=== PATIENT | female | born 1975 | race Caucasian/White ===

== ENCOUNTER 2020-07-16 08:09 | Outpatient (REF) | payer OTHER, SELFPAY ==
[2020-07-16 11:10] LABS: MANUAL DIFF FLAG NO
[2020-07-16 11:23] LABS: Basophils Percent Auto 0.6 % (0-2); Eosinophils Absolute Auto 0.2 X10*3/uL (0.0-0.4); Eosinophils Percent Auto 2.9 % (0-4); Hematocrit 40.6 % (37-47); Hemoglobin 13.3 g/dl (12.0-16.0); Imm Gran Abs Auto 0.01 X10*3/uL (0.00-0.03); Imm Gran Pct Auto 0.2 % (0.0-0.4); Lymphocytes Absolute Auto 2.5 X10*3/uL (1.2-4.9); Lymphocytes Percent Auto 48.4 % (20-40); Mean Corpuscular HGB Conc 32.8 g/dl (31.0-35.0); Mean Corpuscular Hemoglobin 29.8 pg (27.0-33.0); Mean Corpuscular Volume 90.8 fL (80-98); Monocytes Absolute Auto 0.5 X10*3/uL (0.1-1.2); Monocytes Percent Auto 8.7 % (2-11); Neutrophils Percent Auto 39.2 % (45-73); Platelet Count 288 X10*3/uL (160-400); Red Blood Count 4.47 X10*6/uL (4.20-5.50); Red Cell Distribution Width 12.9 % (11.0-16.0); White Blood Count 5.2 X10*3/uL (4.8-10.8)
[2020-07-16 11:31] LABS: Alanine Aminotransferase 20 U/L (0-31); Albumin Level 4.4 g/dL (3.5-5.0); Alkaline Phosphatase 78 U/L (39-117); Anion Gap 13 (12-20); Aspartate Amino Transferase 16 U/L (5-31); Bilirubin Total 0.5 mg/dL (0.0-1.0); Blood Urea Nitrogen 14 mg/dL (9-16); Calcium 8.6 mg/dL (8.4-10.2); Carbon Dioxide 24 mmol/L (22-29); Chloride 107 mmol/L (96-108); Estimated Glomerular Filt Rate > 60; Glucose Fasting 85 mg/dL (60-99); Potassium 3.8 mmol/l (3.3-5.1); Sodium 140 mmol/L (135-145); Total Protein 7.5 g/dL (6.5-8.0)
[2020-07-16 11:43] LABS: Glucose Urine UA NEG (NEG); Leukocyte Esterase Urine NEG (NEG); Nitrite Urine NEG (NEG); Urine Blood 1+ (NEG); Urine Ketones NEG (NEG); Urine Protein NEG (NEG-TRACE)
[2020-07-16 11:50] LABS: Appearance Urine CLEAR; Color Urine YELLOW
[2020-07-16 11:56] LABS: TSH reflex Free T4 1.31 mIU/mL (0.32-4.0)
[2020-07-16 12:33] LABS: Squamous Epithelial Cell Urine 1+ /LPF; WBC Urine 0 /HPF (0-4)
== END 2020-07-16 08:10 | disposition home or self-care (01) ==
LOC: HO.HMGCLDS 08:09
PROVIDERS: PCP Internal Medicine; Visit Provider Hospitalist
DX: R53.82 Chronic fatigue, unspecified (principal)
CPT/HCPCS: 36415; 80053; 81001; 84443; 85025

== ENCOUNTER 2020-09-20 14:57 | Emergency (ER) | payer OTHER, SELFPAY ==
[2020-09-20 15:35] VITALS: BP 149/95; PULSE 68; RESP 16; TEMP 37.1; O2SAT 98; BMI 30.8
[2020-09-20] MEDS: Acetaminophen 325 MG TABLET 650 MG PO (17:15)
[2020-09-20] MEDS: Ketorolac Tromethamine 30 MG/ML VIAL IM (17:15)
--- NOTE | 2020-09-20 17:15 | ED_ITS ---
HPI - Back Pain/Injury General Chief Complaint: Back Pain/Injury Stated Complaint: BACK PAIN Time Seen by Provider: 09/20/20 16:58 History of Present Illness HPI Narrative: Patient complains of back pain for 1 day worse with movement after lots of shoveling yesterday and developed her back pain soon after shoveling, no numbness no weakness or paresthesias no changes to bowel or bladder no fall no other injury no other complaints, pain is moderate Related Data Previous Rx's Medication Instructions Recorded gabapentin 100 mg capsule 100 mg PO TID 30 Days #90 cap 09/02/20 ibuprofen 600 mg PO Q6H PRN #20 tab 09/20/20 oxycodone-acetaminophen [Percocet] 1 tab PO Q6H PRN #14 tab 09/20/20 Allergies Allergy/AdvReac Type Severity Reaction Status Date / Time No Known Allergies Allergy Unverified 06/20/20 17:56 [No Known Allergies*] Lyrica AdvReac Intermediate severe Uncoded 09/02/20 14:23 constipation Review of Systems 2 Review of Systems: No fever no chills no dizziness no weakness no neck pain no abdominal pain no chest pain no numbness no weakness no paresthesias no changes to bowel or bladder no urinary discomfort or frequent, no incontinence Yes all other systems are reviewed and are negative PMFSH Past Medical History Source: nursing notes reviewed Medical History (Updated 09/20/20 @ 17:03 by PETER Vanessa) Back pain Fibromyalgia GERD without esophagitis Neck pain Obesity (BMI 30-39.9) Rib pain Surgical History H/O section Status post total abdominal hysterectomy and bilateral salpingo-oophorectomy (JOHN-BSO) (~2008) Family History Family History (Updated 09/02/20 @ 14:39 by Aris Ha MD) Father Hypertension Mother Hypertension Diabetes mellitus Asthma Arthritis Social History Social History (Updated 09/02/20 @ 14:39 by Aris Ha MD) Alcohol intake: never Smoking Status: Former smoker Advance Directives: No Advance Directives Information Provided: No Physical Exam Vital Signs: Vital Signs: Last Vital Signs Temp 98.8 F 09/20/20 15:35 Pulse 68 09/20/20 15:35 Resp 16 09/20/20 15:35 BP 149/95 H 09/20/20 15:35 Pulse Ox 98 09/20/20 15:35 Body Mass Index 30.8 General appearance is no acute distress, cooperative A&O x3 The head is normocephalic atraumatic Neck is supple nontender Respiratory is no acute distress Abdomen is soft nontender The back had right-sided lower lumbar tenderness, there is no focal bony tenderness there is no CVA tenderness, pain is easily reproduced with movement, the skin is normal without redness warmth wound or rash Extremities full range of motion x4 Neuro gait is normal, verbal interaction is normal, motor is 5/5 x4 and sensation is intact and symmetrical Course Course Course Narrative: Patient is treated for musculoskeletal back pain and discharged to follow with her doctor Discharge Plan Discharge Clinical Impression: Back pain Qualifiers: Back pain location: low back pain Chronicity: unspecified Back pain laterality: right Sciatica presence: with sciatica Sciatica laterality: sciatica of right side Qualified Code(s): M54.41 - Lumbago with sciatica, right side Patient Disposition: Home, Self-Care Additional Instructions: Follow with primary care doctor Return any time any worse condition or concerns Prescriptions: New ibuprofen 600 mg tablet 600 mg PO Q6H PRN (Reason: pain) Qty: 20 RF: 0 oxycodone-acetaminophen [Percocet] 5-325 mg tablet 1 tab PO Q6H PRN (Reason: pain) Qty: 14 RF: 0 No Action gabapentin 100 mg capsule 100 mg PO TID 30 Days Qty: 90 RF: 1 Stand Alone Forms: Work/School Release
== END 2020-09-20 17:25 | disposition home or self-care (01) ==
PROVIDERS: Emergency Provider Emergency Medicine Emergency Medical Services; PCP Internal Medicine
DX: M54.41 Lumbago with sciatica, right side (principal)
CPT/HCPCS: 96372; 99283; 99284; J1885

== ENCOUNTER 2021-07-06 13:16 | Emergency (ER) | payer MEDICARE, MEDICAID, SELFPAY ==
--- NOTE | ~2021-07-06 | XR_ITS ---
EXAMINATION: XR ANKLE, LEFT CLINICAL INFORMATION: Deformity. COMPARISON: None TECHNIQUE: AP, lateral, and mortise views of the left ankle. FINDINGS: There is prominent soft tissue swelling over the lateral malleolus. There is a small joint effusion. No fracture, malalignment or other acute bony abnormality is seen. A small plantar spur is present on the calcaneus. XR/XR ankle LT 2V IMPRESSION: Prominent soft tissue swelling with small joint effusion. No fracture.
[2021-07-06 14:00] VITALS: BP 124/80; PULSE 67; RESP 18; TEMP 37; O2SAT 99; BMI 31.5
--- NOTE | 2021-07-06 15:47 | ED_ITS ---
HPI - Extremity Injury (Lower) General Chief Complaint: Extremity Injury, Lower Stated Complaint: l ankle inj Time Seen by Provider: 07/06/21 15:46 Source: patient Mode of arrival: ambulatory Limitations: no limitations History of Present Illness HPI Narrative: 45-year-old female pmhx significant for fibromyalgia presents to the ED with left ankle pain s/p rolling her ankle when stepping out of her car onto the curb. She states she immediately began feeling pain and her ankle immediately started swelling. She reports 10/10 pain.She is unable to pinpoint just 1 area that hurts, she states it is her entire ankle. She states the pain was so bad she fell, however, she did not hit her head and she lowered herself to the ground. She did not hit her head she did not loose conciousness. She denies chest pain, dizziness, shortness of breath, fevers, chills, LOC, vision changes MD complaint: ankle injury (Left ankle) Onset (ago): hour(s) (1) Type of Injury: inversion Severity: severe Severity scale (1-10): 10 Relieving factors: nothing Exacerbating factors: weight bearing, movement and palpation Associated symptoms: swelling and able to partially bear weight Other symptoms: none Related Data Previous Rx's Medication Instructions Recorded gabapentin 100 mg capsule 100 mg PO TID 30 Days #90 cap 09/02/20 ibuprofen 600 mg tablet 600 mg PO Q6H PRN #20 tab 20 ibuprofen 800 mg tablet 800 mg PO Q8H PRN #30 tab 20 oxycodone-acetaminophen 5 mg-325 1 tab PO Q6H PRN #14 tab 12/18/20 mg tablet (Percocet) oxycodone-acetaminophen 5 mg-325 1 tab PO Q8H PRN #14 tab 12/18/20 mg tablet (Percocet) Allergies Allergy/AdvReac Type Severity Reaction Status Date / Time No Known Allergies Allergy Verified 07/06/21 13:59 [No Known Allergies*] Lyrica AdvReac Intermediate severe Uncoded 09/02/20 14:23 constipation Review of Systems Review of Systems: Yes all other systems are reviewed and are negative Constitutional: Constitutional: Reports no additional constitutional complaints, Denies body ache(s), Denies chills, Denies fever(s), Denies headache(s) and Denies weakness Eyes: Eyes: Reports no additional eye complaints and Denies change in vision ENT: Reports system reviewed and no additional complaints, except as documented, Denies dizziness, Denies headache(s), Denies nasal congestion, Denies nasal discharge and Denies neck pain Cardiovascular: Cardiovascular: Reports no additional cardiovascular complaints, Denies chest pain, Denies leg edema and Denies dyspnea Respiratory: Respiratory: Reports no additional respiratory complaints, Denies cough and Denies dyspnea Gastrointestinal: Gastrointestinal: Reports no additional gastrointestinal complaints, Denies abdominal pain, Denies diarrhea, Denies nausea and Denies vomiting Musculoskeletal: Musculoskeletal: Reports no additional musculoskeletal complaints, Denies back pain, Reports arthralgias (left ankle ), Reports joint swelling (left ankle ), Reports limited range of motion, Denies muscle weakness, Denies neck pain, Denies numbness and Denies tingling Neurologic: Reports system reviewed and no additional complaints, except as documented, Denies Abnormal speech present, Denies dizziness, Denies headache(s), Denies numbness, Denies tingling and Denies weakness PMFSH Past Medical History Attestation statement: The following information was validated with the patient. Source: old records reviewed and nursing notes reviewed Medical History (Updated 07/06/21 @ 16:12 by Kandace Kessler NP) Back pain Fibromyalgia GERD without esophagitis Neck pain Obesity (BMI 30-39.9) Rib pain Surgical History H/O section Status post total abdominal hysterectomy and bilateral salpingo-oophorectomy (JOHN-BSO) (~2008) Family History Family History Father Hypertension Mother Hypertension Diabetes mellitus Asthma Arthritis Social History Social History Alcohol intake: never Advance Directives: No Advance Directives Information Provided: Yes Patient : No Physical Exam Vital Signs: Vital Signs: Last Vital Signs Temp 98.6 F 07/06/21 14:00 Pulse 67 07/06/21 14:00 Resp 18 07/06/21 14:00 BP 124/80 07/06/21 14:00 Pulse Ox 99 07/06/21 14:00 Body Mass Index 31.5 Const: General: cooperative, healthy appearing, comfortable and no acute distress Orientation/consciousness: patient oriented x3 Limitations: no limitations HENMT: Head: Yes normal to inspection Ears: hearing grossly normal bilaterally General nose exam: Normal external nose present Face and sinus: Yes normal facial exam Mouth: Normal oral and palatal mucosa present Throat: Yes posterior oropharynx normal Eyes: General: appearance normal, both eyes and all related structures Pupils: Equal, round and reactive pupils present Neck: Neck: Yes normal visual inspection Chest: Chest palpation & inspection: normal inspection of the chest Resp: Effort & Inspection: normal respiratory effort Auscultation: clear to auscultation bilaterally Cardio: Rate: regular rate Rhythm: regular rhythm Peripheral pulses: Peripheral pulses 2+ throughout GI: Inspection: Yes normal to inspection Palpation (GI): Soft to palpation and nontender Auscultation: normal bowel sounds Back/Spine/Pelvis: Thoracic/Lumbar Spine: thoracic and lumbar spine normal to inspection Skin: General skin exam: no rashes or lesions noted Neuro: General: patient oriented x3, no focal motor deficits and normal sensation to monofilament Cranial nerves: Yes Equal, round and reactive pupils present Cognition (Neuro): normal cognition Speech: No Abnormal speech present Gait exam (Neuro): Normal gait present Motor exam (neuro): 5/5 motor strength present throughout Extrem: General: No normal to inspection (significant swelling to left ankle), No full ROM (limited ROM to right ankle d/t pain and swelling ), Yes capillary refill normal, Yes no calf tenderness and Yes edema (left ankle) Left lower extremity: normal capillary refill, edema and ankle (left ) Details: swelling, pitting edema, abnormal ROM (due to pain, no evident ligament or tendon involvement. Sensation intact. 2+ pulses ), warmth and ecchymosis; No no cyanosis Course Course Course Narrative: 45 yo female pmhx significant for fibromyalgia presents to the ED with left ankle pain s/p rolling her left ankle when stepping out of her car onto the curb. She immediatly noted 10/10 pain and swelling. Physical examination showed pain and swelling to the left ankle, and limited range of motion due to pain. However distal pulses are 2+ and strength equal and bilater al, normal capillary refill. Sensation intact. Extremities warm. There is no evident ligament or tendon involvement. No foot drop. She is safe for discharge home. She can take ibuprofen for pain, use crutches and wear an aircast. She should follow up with her PCP. And she should follow-up with orthopedics if symptoms do not resolve within 2 weeks. MDM - Extremity Injury (Lower) MDM Narrative Medical decision making narrative: An Xray of the left ankle was ordered to r/o fracture, it showed no acute fracture, it did however show swelling and a small effusion. Extremity is warm and swollen with normal sensation. Pain is appropriate for mechanism of injury. Likely not a ligamentous/tendon injury. Medical Records Attestation: I reviewed the patient's medical records. Lab Data Attestation: I reviewed the patient's lab results. Imaging Data Left ankle Xray: Attestation: I personally reviewed and interpreted this imaging study as follows: Radiologist's impression: FINDINGS: There is prominent soft tissue swelling over the lateral malleolus. There is a small joint effusion. No fracture, malalignment or other acute bony abnormality is seen. A small plantar spur is present on the calcaneus.? XR/XR ankle LT 2V IMPRESSION: Prominent soft tissue swelling with small joint effusion. No fracture. Procedures Procedure Narrative Procedure Narrative: Air splint, crutches Discharge Plan Discharge Clinical Impression: Left ankle sprain Qualifiers: Encounter type: initial encounter Involved ligament of ankle: unspecified ligament Qualified Code(s): S93.402A - Sprain of unspecified ligament of left ankle, initial encounter Patient Disposition: Home, Self-Care Instructions: Ankle Sprain (ED), Crutch Instructions (ED), R.I.C.E. Treatment (ED) Additional Instructions: Take ibuprofen for pain as needed Follow up with your PCP this week and folow up with orthopedics if symptoms do not resolve within two weeks. Rest, ice, compress, elevate extremity as outlined in the attached form Use crutches as instructed and wear the air cast Return to the emergency department with new or worsening symptoms Prescriptions: No Action ibuprofen 600 mg tablet 600 mg PO Q6H PRN (Reason: pain) Qty: 20 RF: 0 oxycodone-acetaminophen [Percocet] 5-325 mg tablet 1 tab PO Q6H PRN (Reason: pain) Qty: 14 RF: 0 oxycodone-acetaminophen [Percocet] 5-325 mg tablet 1 tab PO Q8H PRN (Reason: pain) Qty: 14 RF: 0 ibuprofen 800 mg tablet 800 mg PO Q8H PRN (Reason: pain) Qty: 30 RF: 0 gabapentin 100 mg capsule 100 mg PO TID 30 Days Qty: 90 RF: 1 Referrals: Aris Ha MD [Primary Care Provider] - 2 days Baldo Scott MD [Physician] - 2 weeks Stand Alone Forms: Work/School Release
[2021-07-06] MEDS: Ketorolac Tromethamine 15 MG/ML VIAL 30 MG IM (16:26)
== END 2021-07-06 17:50 | disposition home or self-care (01) ==
PROVIDERS: Emergency Provider Internal Medicine; PCP Internal Medicine
DX: S93.402A Sprain of unspecified ligament of left ankle, initial encounter (principal); M25.572 Pain in left ankle and joints of left foot; W01.0XXA Fall on same level from slipping, tripping and stumbling without subsequent striking against object, initial encounter; Y93.9 Activity, unspecified; Y92.9 Unspecified place or not applicable; Y99.9 Unspecified external cause status; Z79.899 Other long term (current) drug therapy
CPT/HCPCS: 29515; 73600; 96372; 99284; J1885

== ENCOUNTER 2022-05-01 11:42 | Emergency (ER) | payer BC, SELFPAY ==
[2022-05-01 11:50] VITALS: BP 145/87; PULSE 69; RESP 18; TEMP 36.8; O2SAT 99; BMI 32.1
--- NOTE | 2022-05-01 12:51 | ED.GENADULT ---
HPI - General Adult General Chief complaint: Extremity Problem Stated complaint: R arm pain rad. to back Time Seen by Provider: 05/01/22 12:38 Source: patient Mode of arrival: ambulatory Limitations: no limitations History of Present Illness HPI narrative: Patient is a 46 year old female presenting to the emergency department today with right elbow pain. Patient states that over the last week, she has had right elbow pain that radiates down into her right wrist and up into her right neck. Patient denies any dizziness, lightheadedness, abdominal pain, nausea, vomiting, fever, chills, blurry vision, double vision, loss of vision, chest pain, difficulty breathing, shortness of breath, back pain, night sweats, pain with urination, increased urinary frequency, increased urinary urgency, blood in her urine or stool, syncope or a near syncopal episode, recent trauma or falls, bowel incontinence, bladder incontinence, bowel retention, bladder retention, or any other complaints at this time. Patient states that she does do a lot of lifting and moving at work. Onset (ago): week(s) (1) Location: left and upper extremity Radiation: proximal and distal Severity: mild Severity scale (1-10): 1 Quality: dull Relieving factors: none Exacerbating factors: none Associated symptoms: denies other symptoms Treatments prior to arrival: none Related Data Home Medications Medication Instructions Recorded Confirmed betamethasone, augmented 0.05 % appl topical 12/31/21 12/31/21 topical cream Previous Rx's Medication Instructions Recorded cyclobenzaprine 5 mg tablet 5 mg PO TID PRN muscle spasm 30 11/25/21 days #90 tabs diclofenac sodium 1 % topical gel 2 g topical QID 10 days #100 grams 12/31/21 (Arthritis Pain (diclofenac)) prednisone 10 mg tablet 10 mg PO DAILY #18 tabs 12/31/21 Allergies Allergy/AdvReac Type Severity Reaction Status Date / Time No Known Allergies Allergy Verified 12/31/21 12:11 [No Known Allergies*] Lyrica AdvReac Intermediate severe Uncoded 12/31/21 12:11 constipation Review of Systems Constitutional: Constitutional: Reports no additional constitutional complaints, Denies chills, Denies fever(s) and Denies night sweats Eyes: Eyes: Reports no additional eye complaints, Denies blurry vision, Denies change in vision, Denies diplopia, Denies eye discharge, Denies loss of vision and Denies eye pain ENT: Denies dizziness Cardiovascular: Cardiovascular: Reports no additional cardiovascular complaints, Denies chest pain, Denies lightheadedness, Denies Loss of Consciousness and Denies dyspnea Respiratory: Respiratory: Reports no additional respiratory complaints and Denies dyspnea Gastrointestinal: Gastrointestinal: Reports no additional gastrointestinal complaints, Denies abdominal pain, Denies melena, Denies hematochezia, Denies change in bowel habits and Denies change in stool character Genitourinary: Genitourinary: Denies hematuria, Denies urinary frequency, Denies dysuria, Denies urinary incontinence, Denies urinary hesitancy and Denies urinary urgency Musculoskeletal: Musculoskeletal: Reports no additional musculoskeletal complaints, Denies numbness and Reports tingling (proximal and distal to the right elbow) Comments: right elbow pain Neurologic: Denies dizziness, Denies loss of vision, Denies numbness and Reports tingling (proximal and distal to the right elbow) Psychiatric: Psychiatric: Reports no additional psychiatric complaints Endocrine: Endocrine: Reports no additional endocrine complaints Hematologic/Lymphatic: Hematologic/Lymphatic: Reports no additional hematologic/lymphatic complaints Allergic/Immunologic: Allergic/Immunologic: Reports no additional allergic/immunologic complaints [facility] Past Medical History Attestation statement: The following information was validated with the patient. Source: old records reviewed Medical History Back pain Fibromyalgia GERD without esophagitis Neck pain Obesity (BMI 30-39.9) Rib pain Surgical History H/O section Status post total abdominal hysterectomy and bilateral salpingo-oophorectomy (JOHN-BSO) (~2008) Family History Family History Father Hypertension Mother Hypertension Diabetes mellitus Asthma Arthritis Social History Social History Housing: House Alcohol intake: former Patient Tobacco Use Status: Former Tobacco user e-Cigarette/Vaping Use: Never Used Second Hand Smoke Exposure: Yes service: No Current occupational status: employed Cognitive needs: No Hearing needs: No Vision needs: Yes Physical Exam ED Vital Signs: Vital Signs - 24 hr 05/01/22 11:50 Temperature 98.2 F Pulse Rate 69 Respiratory Rate 18 Blood Pressure 145/87 H Pulse Oximetry 99 Oxygen Delivery Method Room Air BMI result Body Mass Index 32.1 Const General: cooperative, no acute distress, alert and awake Nutritional Appearance: well nourished Orientation/consciousness: patient oriented x3 Limitations: no limitations HENMT Head: Yes normal to inspection and Yes atraumatic Ears: hearing grossly normal bilaterally and external ears normal General nose exam: Normal external nose present, no nasal discharge noted and no epistaxis Face and sinus: Yes normal facial exam, No abrasion and No laceration Mouth: Normal oral and palatal mucosa present, no drooling and no muffled voice Eyes General: appearance normal, both eyes and all related structures Periorbital: periorbital findings normal Eyelids: Yes eyelids normal Conjunctivae: conjunctivae normal Pupils: Equal, round and reactive pupils present EOM: EOMs intact bilaterally Neck Neck: Yes normal visual inspection, Yes full ROM and Yes no lymphadenopathy Chest Chest palpation & inspection: normal inspection of the chest Resp Effort & Inspection: normal respiratory effort and able to speak in complete sentences Auscultation: clear to auscultation bilaterally Cardio Rate: regular rate Rhythm: regular rhythm GI Inspection: Yes normal to inspection Neuro General: patient oriented x3 and moves all extremities Cranial nerves: Yes Equal, round and reactive pupils present Cognition (Neuro): normal cognition Motor exam (neuro): 5/5 motor strength present throughout Sensory Exam: Normal double simultaneous stimulation for sensation Coordination: [id number] test normal Extrem General: Yes normal to inspection, Yes full ROM and Yes capillary refill normal Psych Appearance: grossly normal Mental Status: mental status grossly normal Affect: normal affect Attitude: cooperative Thought process: Normal thought process present Thought content: Normal thought content present Insight: Good insight present (Psych) Medical Decision Making MDM Narrative Medical decision making narrative: Patient is a 46 year old female presenting to the emergency department today with right elbow pain. Patient's physical exam was unremarkable. I explained my physical exam findings to the patient. I answered all questions asked by the patient. I stressed the importance of the patient taking her medication as prescribed. I stressed the importance of the patient following up with her primary care provider and an orthopedic provider. I stressed the importance of the patient returning to the emergency department immediately if her symptoms were to worsen or if she were to develop any dizziness, shortness of breath, difficulty breathing, chest pain, blurry vision, loss of vision, nausea, vomiting, abdominal pain, fever, chills, back pain, or any other complaints. Patient verbalized agreement and understanding with this treatment plan and discharge. Differential Diagnosis Differential Diagnosis: Right elbow pain, tennis elbow Medical Records Medical records reviewed: Yes I reviewed the patient's medical records. Discharge Plan Discharge Clinical Impression: Right tennis elbow Patient Disposition: Home, Self-Care Instructions: Tennis Elbow (ED) Additional Instructions: Take ibuprofen for pain. Follow up with your primary care provider and an orthopedic provider. Return to the emergency department immediately if your symptoms worsen or if you develop any dizziness, shortness of breath, difficulty breathing, chest pain, blurry vision, loss of vision, nausea, vomiting, abdominal pain, fever, chills, back pain, or any other complaints. Prescriptions: No Action cyclobenzaprine 5 mg tablet 5 mg PO TID PRN (Reason: muscle spasm) 30 Days Qty: 90 0RF betamethasone, augmented 0.05 % cream topical prednisone 10 mg tablet 10 mg PO DAILY Qty: 18 0RF Rx Instructions: Take 3 tablets for 3 days then, Take 2 tablets 3 days then, Take 1 tablet 3 days and stop diclofenac sodium [Arthritis Pain (diclofenac)] 1 % gel 2 g topical QID 10 Days Qty: 100 0RF Rx Instructions: apply to single elbow, wrist or hand; for hand includes palm/fingers/back of hand Referrals: [facility] – [place] [facility] [Provider Group] (Call to establish and follow up with an orthopedic provider. ) Aris Ha MD [Primary Care Provider] - Interventions: ED Discharge Assessment Last Done: 05/01/22 13:24 Discharge Date/Time: 05/01/22 13:29 Print Language: [place]
== END 2022-05-01 13:29 | disposition home or self-care (01) ==
PROVIDERS: Emergency Provider Student in an Organized Health Care Education/Training Program; PCP Internal Medicine
DX: M77.11 Lateral epicondylitis, right elbow (principal)
CPT/HCPCS: 99282